=== PATIENT | male | born 1990 | race Caucasian/White ===

== ENCOUNTER 2017-08-22 02:43 | Emergency (ER) | payer OTHER ==
[~2017-08-22] VITALS: Ht 175.3 cm; Wt 101.2 kg
[2017-08-22 02:48] VITALS: TEMP 36.7; Ht 175.3 cm; Wt 101.2 kg
[2017-08-22] MEDS ORDERED: ALBUTEROL HFA 8 GM INHALER INH STA (02:55)
[2017-08-22] MEDS ORDERED: ALBUT/IPRATROP 3MG/0.5MG NEB 3 ML VIAL INH STA (02:55)
[2017-08-22 03:27] VITALS: O2SAT 96
--- NOTE | 2017-08-22 03:42 | EMERGENCY ROOM VISIT NOTE ---
History First contact with patient: 02:51 Chief Complaint: RESPIRATORY PROBLEMS Stated Complaint: ASTHMA History of Present Illness The patient is a 27 year old male who presents to the Emergency Room with complaints of wheezing with cough and shortness of breath for the past day. Patient has asthma and smokes. He was out snowboarding yesterday. He is out of his inhaler. Patient states last week he had a cold but this has not resolved. Patient denies chest pain, fever, chills, headache, sore throat, productive cough, abdominal pain. He is tolerating p.o. fluids and food. Review of Systems An 10 system review of systems was completed with positives and pertinent negatives listed in the HPI. Past Medical/Surgical History Asthma Social History Smoking Status: Current Every Day Smoker Drug Use: none Occupation Status: [employer] student Physical Exam Vital Signs Date Time Temp Pulse Resp B/P (MAP) Pulse Ox O2 Delivery O2 Flow Rate FiO2 08/22/17 03:27 96 Room Air 08/22/17 03:25 96 Room Air 08/22/17 02:48 36.7 78 18 144/90 95 Room Air Physical Exam PHYSICAL EXAM: Vital Signs: Reviewed Nurse's notes. Oxygen saturation was 95% on room air. GENERAL: Pleasant male, Alert, oriented and coherent. The patient is able to speak in complete sentences. NECK: Supple, non-tender. CHEST: Symmetrical expansion. no retractions no accessory muscle use. HEART: Regular rate and normal heart sounds, no murmur, gallop or rub. LUNGS: Breath sounds equal but significantly diminished in intensity on both sides. Bilateral wheezes heard but no rales or pleuritic rub. SKIN: The skin was without rashes, erythema, edema, or bruising. There is no tenting of the skin. Capillary reflex less than 2 seconds. HEAD: Normocephalic atraumatic. EARS: External auditory canals clear, tympanic membranes pearly schmidt without erythema or effusion bilaterally. EYES: Pupils equal round and reactive to light and accommodation. Conjunctivae without injection, sclerae without icterus. Extraocular movements intact. NOSE: Patent, turbinates without inflammation or discharge. No sinus tenderness. MOUTH: Mucous membranes moist. Pharynx without erythema or exudate. Uvula midline. Airway patent. Tongue does not deviate. ABDOMEN: Positive bowel sounds x 4. Normal tympanic percussion. Soft, nontender, without masses or organomegaly. Harris sign negative. No guarding or rebound tenderness. MUSCULOSKELETAL: No muscle atrophy, erythema, or edema noted. NEURO: Patient was alert and oriented to person place and time. Normal sensation to light and sharp touch. No focal neurological deficits. Medical Decision & Procedures Medications Administered Medications (Trade) Dose Ordered Sig/Angel Route Start Time Stop Time Status Last Admin Dose Admin Albuterol/ Ipratropium (Duoneb) 3 ml NOW STAT INH 08/22/17 02:55 08/22/17 02:57 DC 08/22/17 03:01 3 ML Albuterol (Ventolin Hfa Inhaler) 2 puffs ONE STAT INH 08/22/17 02:55 08/22/17 02:57 DC 08/22/17 03:01 2 PUFFS ED Course Prior records/ancillary studies reviewed. Triage Nursing notes reviewed. The patient's history was concerning for respiratory difficulties. Differential diagnosis: Etiologies such as infections, reactive airway disease, pneumonia, pneumothorax , COPD, CHF, cardiac ischemia, pulmonary embolism, musculoskeletal, gastrointestinal, as well as others were entertained. Physical examination: As above. ER treatment provided: Nebulizer, decadron On reassessment the patient felt better. Diagnostic interpretation by me: Deferred This appears to be consistent with asthma exacerbation. Patient felt much better after being medicated as above. He is not hypoxic. He was not retracting. He was advised to take medications as directed and strongly encouraged to quit smoking. He is advised to follow-up health services in a few days or here in the ER sooner for chest pain, difficulty breathing, fevers, worsening signs or symptoms or as needed. By the evaluation outlined above emergent etiologies such as CHF, cardiac ischemia, pulmonary embolism, pneumonia , pneumothorax, musculoskeletal, serious bacterial infections, as well as others were deemed relatively unlikely. The pt informed about the findings as listed above. All questions were answered and pleased with the treatment. Return instructions were outlined and the patient was discharged in stable condition. Outpatient prescription management: prednisone Referral: The patient was referred back to their primary care physician for follow-up in 2 to 3 days for a recheck of the current condition. Medical Decision As above Medication Reconcilliation Current Medication List: was personally reviewed by me Blood Pressure Screening Patient's blood pressure: Normal blood pressure Impression Primary Impression: Asthma exacerbation Departure Information Dispostion Home / Self-Care Condition GOOD Referrals No Doctor, Assigned (PCP) Patient Instructions My [facility] Additional Instructions Albuterol Inhaler: Take 2 puffs four times daily for five days, then as needed. Prednisone 50mg: Once daily until the prescription is finished. It is best to take this earlier in the day as some patients note occasional difficulty falling asleep when taken in the late evening. Acetaminophen(Tylenol) may be used for fever or pain. Use 1000mg every six hours as needed. Avoid using more than 3000mg in a 24 hour period. (AND/OR) Ibuprofen(Motrin, Advil) may be used for fever or pain. Use 600mg every six hours as needed. Take with food. Avoid using more than 2400mg in a 24 hour period. Do not use 2400mg per day for more than three consecutive days without physician direction. Prolonged inappropriate use can lead to stomach upset or ulcers. Rest and drink plenty of fluids. Avoid smoke/smoking, fumes, dust, or any triggers in the past that may have affected your breathing. Continue current medications. Return to the ER for chest pain, difficulty breathing, fevers, vomiting, worsening of your condition, or as needed. Follow up with your primary physician this week for a recheck of your current condition. Problem Qualifiers Primary Impression: Asthma exacerbation Asthma severity: mild Asthma persistence: persistent Qualified Codes: J45.31 - Mild persistent asthma with (acute) exacerbation
[2017-08-22] MEDS ORDERED: PRED50TA PO (03:43)
[2017-08-22] MEDS ORDERED: DEXAMETHASONE **PF** INJ 10 MG/ML VIAL PO ONE (03:45)
[2017-08-22 03:52] VITALS: BP 135/75; PULSE 79; O2SAT 94
== END 2017-08-22 03:50 | disposition home or self-care (01) ==
LOC: C.EDB 02:45 → C.EDA 03:50
DX: J45.901 Unspecified asthma with (acute) exacerbation (principal); R06.2 Wheezing; F17.210 Nicotine dependence, cigarettes, uncomplicated

== ENCOUNTER 2017-08-27 13:11 | Emergency (ER) | payer OTHER ==
[~2017-08-27] VITALS: Ht 175.3 cm; Wt 102.5 kg
[~2017-08-27 13:11] MED LIST: PRED50TA PO
[2017-08-27 13:25] VITALS: TEMP 36.6; Ht 175.3 cm; Wt 102.5 kg
[2017-08-27 13:31] VITALS: O2SAT 95
[2017-08-27] MEDS ORDERED: ALBUT/IPRATROP 3MG/0.5MG NEB 3 ML VIAL INH STA (13:35)
--- NOTE | 2017-08-27 14:11 | DIAGNOSTIC IMAGING REPORT ---
CHEST 2 VIEWS ROUTINE CLINICAL HISTORY: Cough. Asthma. COMPARISON STUDY: No previous studies for comparison. FINDINGS: Lung volumes are normal. Lungs are clear. No pneumothorax or pleural effusion is noted. Cardiac size is normal. Mediastinal contours are normal. No evidence for pulmonary edema. IMPRESSION: No acute cardiopulmonary findings. Electronically signed by: Maynor Crespo M.D. 08/27/2017 2:10 PM Dictated Date/Time: 08/27/2017 2:04 PM
[2017-08-27] MEDS ORDERED: PRED20TA PO (14:19)
[2017-08-27] MEDS ORDERED: PRVHFAIN INH (14:28)
[2017-08-27 14:41] VITALS: BP 127/72; PULSE 78; O2SAT 95
--- NOTE | 2017-08-27 18:41 | EMERGENCY ROOM VISIT NOTE ---
History Report prepared by Padmini: Antonio Lee Under the Supervision of: Dr. Merrick Hi M.D. First contact with patient: 13:30 Chief Complaint: RESPIRATORY PROBLEMS Stated Complaint: ASTHMA Nursing Triage Summary: pt reports "my lungs feel tight like they don't want hold any oxygen." pt reports hx asthma. pt reports he was seen in ed on thursday after snow boarding he came and was seen in ed. pt reports course of steroids was completed on thursday and that today he tried to use albuterol inhaler but it was empty. History of Present Illness The patient is a 27 year old male who presents to the Emergency Room with complaints of persistent shortness of breath for the past 6 days. He has a history of asthma, and he states that he went snowboarding 6 days ago, and he over exerted himself. He came to the ED that night, and he was given a 5 day prescription for steroids, albuterol, and a breathing treatment. He states that he still feels like he is wheezing and tight, and he states that his last round of steroids was the day before yesterday. The patient denies any fever, cough, chest pain, and leg swelling. He states that he had a cold three weeks ago, though this has since resolved. The patient denies any history of blood clots or any family history of blood clots. The patient does not smoke cigarettes, though he does smoke marijuana a couple of times per week. Source of History: patient Onset: 6 days Position: other (global) Quality: other (shortness of breath) Timing: other (persistent) Associated Symptoms: No fevers, No cough, No chest pain Review of Systems See HPI for pertinent positives & negatives. A total of 10 systems reviewed and were otherwise negative. Past Medical & Surgical Medical Problems: (1) Asthma Social History Smoking Status: Never Smoker Drug Use: marijuana Occupation Status: [employer] student Current/Historical Medications Scheduled Prednisone (Prednisone), 0 PO DAILY Scheduled PRN Albuterol (Ventolin Hfa), 2 PUFFS INH Q4H PRN for Dyspepsia Allergies Coded Allergies: No Known Allergies (Unverified , 08/27/17) Physical Exam Vital Signs Date Time Temp Pulse Resp B/P (MAP) Pulse Ox O2 Delivery O2 Flow Rate FiO2 08/27/17 14:41 78 18 127/72 95 08/27/17 13:53 68 18 121/83 99 08/27/17 13:36 65 08/27/17 13:31 95 Room Air 08/27/17 13:29 95 Room Air 08/27/17 13:25 36.6 72 20 138/81 90 Room Air Physical Exam Constitutional: Vital signs reviewed. Eyes: Pupils are equal round reactive to light. Conjunctiva are noninjected. ENT: Pharynx is clear without erythema or exudate. Mucous membranes are moist. Neck supple without meningeal signs. Respiratory: Mild expiratory wheezing bilaterally. Breath sounds are equal bilaterally. Cardiovascular: Regular rate and rhythm. No rubs or gallops. GI: Soft, nondistended and nontender. Bowel sounds are present. Musculoskeletal: No peripheral edema. No lower extremity tenderness. Integumentary: No cyanosis. Neurological: The patient is awake and alert. No focal deficits. Psychiatric: Normal affect. Medical Decision & Procedures ER Provider Diagnostic Interpretation: Radiology results as stated below per my review and the radiologist's interpretation: CHEST 2 VIEWS ROUTINE CLINICAL HISTORY: Cough. Asthma. COMPARISON STUDY: No previous studies for comparison. FINDINGS: Lung volumes are normal. Lungs are clear. No pneumothorax or pleural effusion is noted. Cardiac size is normal. Mediastinal contours are normal. No evidence for pulmonary edema. IMPRESSION: No acute cardiopulmonary findings. Electronically signed by: Maynor Crespo M.D. 08/27/2017 2:10 PM Dictated Date/Time: 08/27/2017 2:04 PM Medications Administered Medications (Trade) Dose Ordered Sig/Angel Route Start Time Stop Time Status Last Admin Dose Admin Albuterol/ Ipratropium (Duoneb) 3 ml NOW STAT INH 08/27/17 13:35 08/27/17 13:36 DC 08/27/17 13:43 3 ML Prednisone (PredniSONE TAB) 60 mg NOW STAT PO 08/27/17 13:35 08/27/17 13:36 DC 08/27/17 13:43 60 MG ED Course 1330: The patient was evaluated in room A. A complete history and physical exam was performed. 1335: Prednisone 60mg PO, DuoNeb 3ml INH 1418: I reevaluated the patient, and he states that he feels much better. Upon reexamination, the patient had minimal wheezing with improved air movement. I discussed the results, and he will be discharged home. Medical Decision This is a 27-year-old male who presents with shortness of breath. Differential diagnosis includes asthma exacerbation, pneumonia, bronchitis, URI. I did perform a limited focused review of portions of the patient's old chart on the electronic medical record. The patient was seen here 5 days go for an asthma exacerbation and discharged on steroids. I did evaluate the patient as noted above. I did order and personally review the patient's chest x-ray as described above. There is no evidence of pneumonia. I did treat him with a albuterol and Atrovent nebulizer. He was also given prednisone. I did reassess the patient. He states he is feeling much better. His wheezing is gone on reexamination and his air entry is improved. He did feel ready for discharge. He was given a prescription for an albuterol MDI and a longer taper of prednisone. He was advised to follow-up with his doctor and discharged in good condition. Medication Reconcilliation Current Medication List: was personally reviewed by me Blood Pressure Screening Patient's blood pressure: Elevated blood pressure Blood pressure disposition: Referred to PCP Impression Primary Impression: Asthma exacerbation Scribe Attestation The scribe's documentation has been prepared under my direct and personally reviewed by me in its entirety. I confirm that the note above accurately reflects all work, treatment, procedures, and medical decision making performed by me. Departure Information Dispostion Home / Self-Care Prescriptions Albuterol (Ventolin Hfa) 60 Puffs/5400 Mcg Aers 2 PUFFS INH Q4H Y for Dyspepsia, #1 INHALER Prov: Merrick Hi M.D. 08/27/17 Prednisone (Prednisone) 20 Mg Tab 0 PO DAILY, #14 TAB 3 TABS DAILY FOR 2 DAYS, THEN 2 TABS DAILY FOR 2 DAYS, THEN 1 TAB DAILY FOR 2 DAYS, THEN 1/2 TAB DAILY FOR 2 DAYS. Prov: Merrick Hi M.D. 08/27/17 Referrals No Doctor, Assigned (PCP) Forms HOME CARE DOCUMENTATION FORM, IMPORTANT VISIT INFORMATION, WORK / SCHOOL INSTRUCTIONS Patient Instructions Asthma - [facility], My [facility] Additional Instructions You have been examined and treated today on an emergency basis only. This is not a substitute for, or an effort to provide, complete comprehensive medical care. It is impossible to recognize and treat all injuries or illnesses in a single emergency department visit. It is therefore important that you follow up closely with your physician. Call as soon as possible for an appointment. Return for worsening symptoms or if you develop fever, vomiting, chest pain or any other concerning symptoms. Problem Qualifiers Primary Impression: Asthma exacerbation Asthma severity: mild Asthma persistence: unspecified Qualified Codes: J45.901 - Unspecified asthma with (acute) exacerbation
== END 2017-08-27 14:42 | disposition home or self-care (01) ==
LOC: C.EDB 13:12 → C.EDA 14:42
DX: J45.901 Unspecified asthma with (acute) exacerbation (principal); F12.10 Cannabis abuse, uncomplicated